=== PATIENT | male | born 1990 ===

== ENCOUNTER 2020-05-10 10:13 | Outpatient (CLI) | payer OTHER, SELFPAY ==
[2020-05-12 22:12] LABS: H pylori, Urea Breath NOT DETECTED (NOT DETECTED)
== END 2020-05-10 10:14 | disposition home or self-care (01) ==
LOC: CHSLAB 10:16
PROVIDERS: PCP Family Medicine; Visit Provider Family Medicine
DX: K21.9 Gastro-esophageal reflux disease without esophagitis (principal); K59.00 Constipation, unspecified; G25.0 Essential tremor
CPT/HCPCS: 83013